=== PATIENT | female | born 1955 | race Caucasian/White ===

== ENCOUNTER 2016-09-15 20:36 | Emergency (ER) | payer OTHER ==
[~2016-09-15] VITALS: Ht 167.6 cm; Wt 60.4 kg
[~2016-09-15 20:36] MED LIST: BIOT10TA PO; CALC-46 PO; CITA40TA5 PO; LACT1CAP35 PO; LEVO112T4 PO; MULT-658 PO; OMEG1CAP12 PO; VITA400C40 PO
[2016-09-15 21:41] LABS: PATH.CAST-FLAG NOT PRESENT; SPERM-FLAG NOT PRESENT; SRC-FLAG NOT PRESENT; XTAL-FLAG NOT PRESENT; YLC-FLAG NOT PRESENT
[2016-09-15 22:07] VITALS: BP 137/75
== END 2016-09-15 22:09 | disposition home or self-care (01) ==
LOC: ED 22:00
DX: N30.01 Acute cystitis with hematuria (principal); Z90.710 Acquired absence of both cervix and uterus
CPT/HCPCS: 81001; 87077; 87086; 87186; 99284

== ENCOUNTER 2016-10-17 20:51 | Emergency (ER) | payer OTHER ==
[2016-10-18] MEDS ORDERED: CEFDINIR 300 MG CAPSULE PO ONE (01:19)
== END 2016-10-18 01:45 | disposition home or self-care (01) ==
LOC: ED 20:51
DX: N30.01 Acute cystitis with hematuria (principal)
CPT/HCPCS: 81001; 87077; 87086; 87186; 99284

== ENCOUNTER → 2016-12-29 | Outpatient (CLI) | payer OTHER ==
[~2016-12-29] MED LIST changes: -OMEG1CAP12 PO; +OMEG1CAP23 PO; -VITA400C40 PO; +VITA400C43 PO
== END | disposition home or self-care (01) ==
LOC: CFH 10:42
PROVIDERS: ATTEND Physician Assistant
DX: E03.9 Hypothyroidism, unspecified (principal); Z78.0 Asymptomatic menopausal state
CPT/HCPCS: 76536

== ENCOUNTER → 2017-01-03 | Outpatient (CLI) | payer OTHER | END | disposition home or self-care (01) | LOC: CFH 09:04 | PROVIDERS: ATTEND Physician Assistant | DX: Z13.820 Encounter for screening for osteoporosis (principal); M81.0 Age-related osteoporosis without current pathological fracture; E03.9 Hypothyroidism, unspecified; F10.20 Alcohol dependence, uncomplicated | CPT/HCPCS: 77080 ==

== ENCOUNTER 2018-01-25 14:44 | Emergency (ER) | payer OTHER ==
[~2018-01-25] VITALS: Ht 167.6 cm; Wt 57.3 kg
[2018-01-25] MEDS ORDERED: MECLIZINE CHEWABLE 25 MG TAB PO ONE (15:00)
[2018-01-25] MEDS ORDERED: MECLIZINE CHEWABLE 25 MG TAB ONE (15:21)
[2018-01-25 15:35] LABS: BASOPHILS # (AUTO) 0.04 x10^3/uL (0-0.1); BASOPHILS % (AUTO) 1 % (0-1); EOSINOPHILS % (AUTO) 10 % (1-7); LYMPHOCYTES # (AUTO) 1.73 x10^3/uL (1-3.4); LYMPHOCYTES % (AUTO) 35 % (22-44); MD NO; MEAN CORPUSCULAR HEMOGLOBIN 33.5 pg (27.0-34.8); MEAN CORPUSCULAR HGB CONC 34.5 g/dL (32.4-35.8); MEAN CORPUSCULAR VOLUME 97.2 fL (80-100); MEAN PLATELET VOLUME 9.4 fL (7.4-10.4); MONOCYTES # (AUTO) 0.62 x10^3/uL (0.2-0.8); MONOCYTES % (AUTO) 13 % (2-9); NEUTROPHILS # (AUTO) 2.07 x10^3/uL (1.8-6.8); NEUTROPHILS % (AUTO) 42 % (42-75); PLATELET COUNT 207 x10^3/uL (130-400); RED BLOOD COUNT 4.38 x10^6/uL (3.82-5.3); RED CELL DISTRIBUTION WIDTH 12.6 % (9.6-15.2)
[2018-01-25 15:36] LABS: MICROSCOPIC AUTO
[2018-01-25 15:41] LABS: CULTURE INDICATED? YES
[2018-01-25 15:41] LABS: ALBUMIN 3.9 g/dL (3.4-5.0); CALCIUM 8.8 mg/dL (8.5-10.1); CREATININE 0.87 mg/dL (0.55-1.02)
[2018-01-25 15:45] LABS: TROPONIN I < 0.015 ng/mL (0.000-0.045)
[2018-01-25 15:52] LABS: ANION GAP 9 mmol/L (5-15); CHLORIDE 105 mmol/L (98-107)
[2018-01-25 16:50] VITALS: BP 118/74
== END 2018-01-25 16:51 | disposition home or self-care (01) ==
LOC: ED 15:42
DX: R42 Dizziness and giddiness (principal); E07.9 Disorder of thyroid, unspecified; R82.99 Other abnormal findings in urine; Z88.0 Allergy status to penicillin
CPT/HCPCS: 36415; 70450; 71045; 80048; 81001; 82040; 84484; 85025; 87086; 93005; 99285

== ENCOUNTER → 2018-02-09 | Outpatient (CLI) | payer OTHER | END | disposition home or self-care (01) | LOC: CFH 15:50 | PROVIDERS: ATTEND Physician Assistant | DX: R42 Dizziness and giddiness (principal); E55.9 Vitamin D deficiency, unspecified; F10.10 Alcohol abuse, uncomplicated; E03.9 Hypothyroidism, unspecified; F32.9 Major depressive disorder, single episode, unspecified | CPT/HCPCS: 93880 ==

== ENCOUNTER → 2018-02-12 | Outpatient (CLI) | payer OTHER ==
[~2018-02-12] MED LIST changes: +GADOBUTROL 7.5 MMOL/7.5 ML PFS ONE
== END | disposition home or self-care (01) ==
LOC: CFH 08:10
PROVIDERS: ATTEND Physician Assistant
DX: G31.9 Degenerative disease of nervous system, unspecified (principal); I67.82 Cerebral ischemia
CPT/HCPCS: 70553; A9585

== ENCOUNTER → 2019-12-27 | Outpatient (CLI) | payer OTHER ==
[~2019-12-27] MED LIST changes: -GADOBUTROL 7.5 MMOL/7.5 ML PFS ONE
== END | disposition home or self-care (01) ==
LOC: STAR 08:36
PROVIDERS: ATTEND Orthopaedic Surgery
DX: Z01.818 Encounter for other preprocedural examination (principal); Z11.59 Encounter for screening for other viral diseases
CPT/HCPCS: 36415; 87635

== ENCOUNTER 2019-12-31 07:35 | Day surgery (SDC) | payer OTHER ==
[~2019-12-31] VITALS: Ht 167.6 cm; Wt 56.0 kg
[2019-12-31] MEDS ORDERED: FENTANYL PF 100 MCG/2ML ONE (08:15)
[2019-12-31] MEDS ORDERED: PROPOFOL 50 ML ONE (08:15)
[2019-12-31] MEDS ORDERED: LACTATED RINGERS 1,000 ML IV SCH (08:24)
[2019-12-31] MEDS ORDERED: CHLORHEXIDINE 15 ML UDC ONE (08:26)
[2019-12-31] MEDS ORDERED: CHLORHEXIDINE 15 ML UDC MM ONE (08:30)
[2019-12-31] MEDS ORDERED: PLEASE ENTER HEIGHT AND WEIGHT MC SCH (08:30)
[2019-12-31] MEDS ORDERED: LIDOCAINE-MPF 1%, 2ML INFIL ONE (08:30)
[2019-12-31 08:34] VITALS: BP 146/86
[2019-12-31] MEDS ORDERED: BUPIVACAINE/PF 0.5% ONE (09:05)
[2019-12-31] MEDS ORDERED: LIDOCAINE 1%, 20ML ONE (09:05)
[2019-12-31] MEDS ORDERED: CEFAZOLIN 1,000 MG ONE (09:21)
[2019-12-31] MEDS ORDERED: MEPERIDINE/PF 25MG/0.5ML IVPush PRN (09:30)
[2019-12-31] MEDS ORDERED: FENTANYL PF 100 MCG/2ML IV PRN (09:30)
[2019-12-31] MEDS ORDERED: OXYcodone 5 MG/5 ML ORAL.SOL UDC PO PRN (09:30)
[2019-12-31] MEDS ORDERED: HYDROmorphone 1 MG/ML, 1ML INJ IVPush PRN (09:30)
[2019-12-31] MEDS ORDERED: DIAZEPAM 5 MG/ML, 2ML IVPush PRN (09:30)
[2019-12-31] MEDS ORDERED: DIPHENHYDRAMINE 50 MG/ML, 1ML IVPush PRN (09:30)
[2019-12-31] MEDS ORDERED: ONDANSETRON 2MG/ML, 2ML IVPush PRN (09:30)
[2019-12-31] MEDS ORDERED: PROMETHAZINE 25 MG/ML, 1ML IVPush PRN (09:30)
[2019-12-31] MEDS ORDERED: ACETAMINOPHEN 325 MG TABLET PO PRN (09:30)
[2019-12-31] MEDS ORDERED: EPHEDRINE 50 MG/ML, 1ML IM PRN (09:30)
== END 2019-12-31 11:05 | disposition home or self-care (01) ==
LOC: OUT 07:35
PROVIDERS: ATTEND Orthopaedic Surgery
DX: M65.322 Trigger finger, left index finger (principal); R22.32 Localized swelling, mass and lump, left upper limb; M79.642 Pain in left hand; M81.0 Age-related osteoporosis without current pathological fracture; Z85.41 Personal history of malignant neoplasm of cervix uteri; Z88.0 Allergy status to penicillin; Z72.89 Other problems related to lifestyle; Z79.899 Other long term (current) drug therapy; Z82.49 Family history of ischemic heart disease and other diseases of the circulatory system; Z98.890 Other specified postprocedural states
CPT/HCPCS: 26055; 26115; 88305; J0690; J2704; J3010; J7120